=== PATIENT | male | born 2000 | race Hispanic/Latino ===

== ENCOUNTER 2022-03-28 15:44 | Emergency (ER) | payer OTHER ==
[~2022-03-28] VITALS: Ht 172.7 cm; Wt 95.7 kg
[2022-03-28 15:45] VITALS: BP 128/78
[2022-03-28] MEDS ORDERED: FENTANYL CITRATE PF 50 MCG/1 ML 2ML VIAL IVP ONE (16:00)
[2022-03-28] MEDS ORDERED: CLINDAMYCIN IVPB 600MG/50ML 50 ML IV SCH (16:00)
[2022-03-28 16:08] LABS: BASOPHILS % (AUTO) 0.3 % (0.0-5.0); EOSINOPHILS % (AUTO) 1.5 % (0.0-8.0); MEAN CORPUSCULAR HGB CONC 34.5 g/dL (32.0-36.0); MEAN CORPUSCULAR VOLUME 86.8 fL (80-100); MONOCYTES % (AUTO) 6.9 % (3.0-13.0); NEUTROPHILS % (AUTO) 74.1 % (40.0-77.0); PLATELET COUNT (AUTO) 346 K/uL (130-400); RED BLOOD CELL COUNT(AUTO) 5.07 MIL/uL (4.50-6.20); RED CELL DISTRIBUTION WIDTH 13.5 % (11.0-15.5)
[2022-03-28] MEDS ORDERED: 0.9%NACL 50ML 50 ML IV ONE (16:18)
[2022-03-28] MEDS ORDERED: LIDOCAINE HCL 1% 10 ML VIAL ONE (16:23)
[2022-03-28 16:26] LABS: CREATININE 0.9 mg/dL (0.5-1.5); POTASSIUM 3.6 mmol/L (3.5-5.1)
[2022-03-28 16:30] LABS: ALBUMIN 3.8 g/dL (3.5-5.0); CRP QUANTITATIVE 21.3 mg/L (0.00-9.0); TOTAL PROTEIN, SERUM 7.2 g/dL (6.0-8.3)
[2022-03-28] MEDS ORDERED: LIDOCAINE HCL 1% 20 ML VIAL INJ SCH (16:30)
[2022-03-28] MEDS ORDERED: CLIN-141 PO (16:47)
[2022-03-28] MEDS ORDERED: ACET-2079 PO (16:47)
== END 2022-03-28 17:31 | disposition home or self-care (01) ==
LOC: EDH 15:44
DX: K61.1 Rectal abscess (principal); F90.9 Attention-deficit hyperactivity disorder, unspecified type
CPT/HCPCS: 46040; 99284; 96365; 96375; 80053; 85025; 87040 ×2; 87076; 83605; 86140; 36415; 87070; J3010; J3490 ×2